=== PATIENT | female | born 1950 | race American Indian/Alaskan Native ===

== ENCOUNTER 2016-07-19 10:09 | Outpatient (CLI) | payer MEDICARE ==
[2016-07-19 11:09] LABS: Blood Urea Nitrogen 8 mg/dL (7-17)
[2016-07-19] MEDS ORDERED: NACL ONE (13:04)
--- NOTE | 2016-07-19 15:45 | Cat Scan Report ---
CT ABDOMEN AND PELVIS WITHOUT CONTRAST HISTORY: Pelvic pain, abdominal pain. TECHNIQUE: Helical CT without IV contrast. Please note that the patient's IV infiltrated during contrast administration. FINDINGS: No comparison. There is a moderate to large hiatal hernia. Heart size is normal. The visualized lung bases are clear. Normal liver and spleen. Cholecystectomy changes are appreciated. No biliary dilatation. The pancreas and adrenal glands are unremarkable. Both kidneys are normal size and contour. Punctate calyceal stone at the inferior pole of the right kidney is noted. No focal renal mass, or cystic disease or hydronephrosis. The ureters and bladder are unremarkable. The uterus is normal size. 1 cm partially calcified fibroid in the left lateral wall is noted. The ovaries are unremarkable. Bilateral tubal ligation clips. The bowel loops are normal caliber and wall thickness. No obstruction or inflammation. Normal appendix. There is trace ascites adjacent to the spleen. IMPRESSION: No acute abdominal process. Hiatal hernia. Punctate right renal stone. Trace ascites.
== END 2016-07-19 10:10 | disposition home or self-care (01) ==
LOC: CT 10:09
PROVIDERS: ATTEND Internal Medicine
DX: D25.9 Leiomyoma of uterus, unspecified (principal); N20.0 Calculus of kidney; K44.9 Diaphragmatic hernia without obstruction or gangrene; R18.8 Other ascites; Z90.49 Acquired absence of other specified parts of digestive tract
CPT/HCPCS: 36415; 74176; 82565; 84520